=== PATIENT | female | born 1980 | race Caucasian/White ===

== ENCOUNTER 2019-11-28 19:01 | Emergency (ER) | payer MEDICARE, SELFPAY ==
[2019-11-28 19:08] VITALS: BP 120/86; PULSE 103; RESP 14; TEMP 36.7; O2SAT 100
--- NOTE | 2019-11-28 19:38 | ED.GENADULT ---
HPI - General Adult General Chief complaint: Upper Respiratory Infection Stated complaint: sore throat/headache Time Seen by Provider: 11/28/19 19:38 Source: patient and RN notes reviewed Mode of arrival: ambulatory Limitations: no limitations History of Present Illness HPI narrative: 38-year-old female presents with complaints of sore throat with white and red spots for 1 day. Tylenol, last at 18:00 with little relief. Sudafed and Benadryl last night without relief. No high fevers, drooling, neck or throat swelling. Pain is bilateral. Hurts to swallow. Exacerbation factors consist of eating and drinking. No rhinorrhea or nasal congestion. No voice change. No nausea, vomiting, or abdominal pain. Tolerating liquids well. LMP 11/27/19. Remains active. Denies chills, dyspnea, difficulty swallowing, jaw pain, dental pain, facial pain, foreign body sensation, and rash. Remains active. The patient reports she have not been diagnosed with COVID-19. The patient reports she is not waiting for the results of a COVID-19 lab test. The patient reports she do not have fever, chills, weakness, fatigue, myalgia, or facial swelling. The patient reports she do not have a new or worsening cough or shortness of breath. Denies chest pain. The patient reports she do not have any rhinorrhea, congestion, and diarrhea. Denies recent traveling. Denies concerns for COVID-19 or exposures been home with limited outdoor exposure except for essential household needs and return home. At this time, patient is not suspected of having COVID-19. Some parts of this dictation were generated by voice recognition software and may contain typographical and/or grammatical inaccuracies. Related Data Home Medications Medication Instructions Recorded Confirmed acetaminophen-codeine 1 tablet PO Q6H PRN 11/28/19 11/28/19 duloxetine 60 mg PO BID 11/28/19 11/28/19 hydroxyzine HCl 50 mg PO QID PRN 11/28/19 11/28/19 lamotrigine 150 mg PO DAILY 11/28/19 11/28/19 levothyroxine [Euthyrox] 50 mcg PO DAILY 11/28/19 11/28/19 pantoprazole 40 mg PO HS 11/28/19 11/28/19 pregabalin [Lyrica] 75 mg PO BID 11/28/19 11/28/19 Allergies Allergy/AdvReac Type Severity Reaction Status Date / Time No Known Allergies Allergy Verified 11/28/19 19:23 Review of Systems Review of Systems: Narrative: CONSTITUTIONAL: Denies fever, chills, sweats. EYES: Denies visual changes, redness, discharge. ENT: Denies rhinorrhea, congestion, otalgia. Complains of sore throat with red and white spots. CARDIOVASCULAR: Denies chest pain, palpitations, edema. RESPIRATORY: Denies dyspnea, wheezing, cough. GASTROINTESTINAL: Denies abdominal pain, nausea, vomiting, diarrhea. GENITOURINARY: Denies dysuria, hematuria, abnormal discharge. SKIN: Denies rash or itching. MUSCULOSKELETAL: Denies acute back pain, joint pain, or myalgia. NEUROLOGIC: Denies numbness or focal weakness. PSYCHIATRIC: Denies anxiety or depression. All systems reviewed & are unremarkable except as noted in HPI and below. [facility] Past Medical History Medical History (Updated 11/29/19 @ 00:00 by Jadyn Dixon) Anxiety Depression Fibromyalgia Aris's disease History of gastroesophageal reflux (GERD) History of OCD (obsessive compulsive disorder) History of strep sore throat Surgical History Surgical History (Updated 11/28/19 @ 19:52 by NESSA Mcintyre) History of cholecystectomy History of exploratory laparotomy Family History Family History (Updated 11/28/19 @ 19:52 by NESSA Mcintyre) Father S/P triple vessel bypass Mother Alive and well Social History Social History (Updated 12/05/19 @ 09:30 by NESSA Mcintyre) Smoking status: Never smoker Tobacco type: cigarettes Second hand tobacco smoke exposure: No Alcohol intake: current Substance use: never Living arrangements: with family Occupation/Education: occupation Gender identity (if verbalized by the patient):
== END 2019-11-28 19:50 | disposition home or self-care (01) ==
PROVIDERS: Emergency Provider Nurse Practitioner Family
DX: J02.0 Streptococcal pharyngitis (principal); F17.220 Nicotine dependence, chewing tobacco, uncomplicated; M79.7 Fibromyalgia; F32.9 Major depressive disorder, single episode, unspecified; E06.3 Autoimmune thyroiditis; K21.9 Gastro-esophageal reflux disease without esophagitis
CPT/HCPCS: 87880; 99213; G0463

== ENCOUNTER → 2021-02-07 11:04 | Outpatient (CLI) | payer MEDICARE, SELFPAY ==
--- NOTE | ~2021-02-07 | MM_ITS ---
EXAMINATION: MM screening aidee BI w chao HISTORY: Screening mammogram TECHNIQUE: Craniocaudal and mediolateral oblique 3-D tomosynthesis images were obtained and synthetic 2-D images were generated. CAD analysis was submitted and interpreted. COMPARISON: None, baseline BREAST PARENCHYMAL COMPOSITION: The breasts are heterogeneously dense, which may obscure small masses . FINDINGS: RIGHT BREAST: There are asymmetries in the posterior third of the upper breast and lower breast on th e mediolateral oblique view. LEFT BREAST: A mass is present in the posterior third of the outer breast. IMPRESSION: 1. Bilateral breast findings as above. 2. Additional mammographic views and possible breast ultrasound are recommended to evaluate for malig cleve and establish a baseline given that this is the first mammographic examination. BI-RADS Category 0: Incomplete: Needs additional imaging evaluation. Reviewed, dictated and finalized at location A. IMPRESSION: 1. Bilateral breast findings as above. 2. Additional mammographic views and possible breast ultrasound are recommended to evaluate for malignancy and establish a baseline given that this is the fir st mammographic examination. BI-RADS Category 0: Incomplete: Needs additional imaging evaluation.
== END ==
PROVIDERS: Visit Provider Obstetrics & Gynecology
DX: Z12.31 Encounter for screening mammogram for malignant neoplasm of breast (principal); R92.8 Other abnormal and inconclusive findings on diagnostic imaging of breast
CPT/HCPCS: 77063; 77067

== ENCOUNTER 2021-05-17 19:07 | Emergency (ER) | payer MEDICARE, SELFPAY ==
[2021-05-17 19:13] VITALS: BP 118/77; PULSE 98; RESP 18; TEMP 36.6; O2SAT 99
--- NOTE | 2021-05-17 19:20 | ED.URI ---
HPI - URI/Sore Throat General Chief Complaint: Upper Respiratory Infection Stated Complaint: Sore throat, headache. Source: patient Mode of arrival: ambulatory Limitations: no limitations History of Present Illness HPI Narrative: 40-year-old female presents to [facility] with complaints of sore throat, headache and sweats since this morning. Patient reports long history of strep throat. Patient denies cough, congestion, runny nose, nausea, vomiting or diarrhea. MD elicited complaint: sore throat and other (headache) Onset (ago): hour(s) (12) Able to tolerate fluids by mouth: Yes Context: recent hospitalization Related Data Home Medications Medication Instructions Recorded Confirmed acetaminophen-codeine 1 tablet PO Q6H PRN 11/28/19 11/28/19 duloxetine 60 mg PO BID 11/28/19 11/28/19 hydroxyzine HCl 50 mg PO QID PRN 11/28/19 11/28/19 lamotrigine 150 mg PO DAILY 11/28/19 11/28/19 levothyroxine [Euthyrox] 50 mcg PO DAILY 11/28/19 11/28/19 pantoprazole 40 mg PO HS 11/28/19 11/28/19 pregabalin [Lyrica] 75 mg PO BID 11/28/19 11/28/19 fluticasone propionate [Allergy 1 spray NASAL BID PRN 05/17/21 05/17/21 Relief (fluticasone)] Allergies Allergy/AdvReac Type Severity Reaction Status Date / Time No Known Allergies Allergy Verified 05/17/21 19:21 Review of Systems Constitutional: Constitutional: Reports chills, Denies fatigue, Denies fever(s) and Denies weakness ENT: Reports sore throat Cardiovascular: Cardiovascular: Denies chest pain, Denies rapid heart rate, Denies radiating jaw, neck or arm pain and Denies slow heart rate Gastrointestinal: Gastrointestinal: Denies abdominal pain, Denies nausea and Denies vomiting Neurologic: Reports headache(s) PMFSH Past Medical History Medical History Anxiety Depression Fibromyalgia Aris's disease History of gastroesophageal reflux (GERD) History of OCD (obsessive compulsive disorder) History of strep sore throat Surgical History Surgical History (Updated 11/28/19 @ 19:52 by NESSA Mcintyre) History of cholecystectomy History of exploratory laparotomy Family History Family History Father S/P triple vessel bypass Mother Alive and well Social History Social History Smoking status: Never smoker Tobacco type: cigarettes Second hand tobacco smoke exposure: No Alcohol intake: current Substance use: never Gender identity (if verbalized by the patient): Female Comments At time of signature, I agree with nursing past medical, surgical, social and family history. There is no relevant family history pertinent to the presenting complaint. Exam Const: General: healthy appearing and no acute distress Orientation/consciousness: patient oriented x3 HENMT: Head: normal to inspection General nose exam: Normal external nose present and Normal nares present Face and sinus: normal facial exam Mouth: Yes Normal oral and palatal mucosa present and Yes moist mucous membranes Throat: uvula midline Other: Mild erythema and swelling noted to bilateral tonsils Neck: Neck: normal visual inspection Resp: Effort & Inspection: normal respiratory effort and not tachypneic Auscultation: clear to auscultation bilaterally Cardio: Rate: regular rate Rhythm: regular rhythm Skin: General skin exam: normal color Rashes: no rashes Neuro: General: patient oriented x3, moves all extremities and no meningeal signs Extrem: General: normal to inspection Psych: Affect: normal affect Attitude: cooperative Course Course Level of Care: Express Care Visit Vital Signs Vital signs: Vital Signs Temperature 36.6 C 05/17/21 19:13 Pulse Rate 98 05/17/21 19:13 Respiratory Rate 18 05/17/21 19:13 Blood Pressure 118/77 05/17/21 19:13 Pulse Oximetry 99 05/17/21 19:13 Temperature
== END 2021-05-17 19:40 | disposition home or self-care (01) ==
PROVIDERS: Emergency Provider Nurse Practitioner Family
DX: J02.9 Acute pharyngitis, unspecified (principal); M79.7 Fibromyalgia; E06.3 Autoimmune thyroiditis; K21.9 Gastro-esophageal reflux disease without esophagitis
CPT/HCPCS: 87081; 87880; 99213; G0463

== ENCOUNTER 2021-07-01 11:24 | Emergency (ER) | payer MEDICARE, SELFPAY ==
--- NOTE | 2021-07-01 11:26 | ED.URI ---
HPI - URI/Sore Throat General Chief Complaint: Upper Respiratory Infection Stated Complaint: sore throat Time Seen by Provider: 07/01/21 11:26 Source: patient and RN notes reviewed History of Present Illness HPI Narrative: Patient is a 40-year-old female who presents the urgent care with complaints of a sore throat since that has worsened over the last 24 hours. Patient denies of any other upper respiratory complaints. Denies of fever, chills, nausea, vomiting or cough. Patient states she is been taking ibuprofen and Tylenol. Patient has a history of frequent strep throat. States that she just had it in either March or May. No other acute complaints. Denies of any contacts. No acute distress noted. Patient read the plan of care. Some parts of this dictation were generated by voice recognition software and may contain typographical and/or grammatical inaccuracies. Related Data Home Medications Medication Instructions Recorded Confirmed duloxetine 60 mg PO BID 11/28/19 05/17/21 lamotrigine 150 mg PO DAILY 11/28/19 05/17/21 levothyroxine [Euthyrox] 50 mcg PO DAILY 11/28/19 05/17/21 albuterol 90 mcg INHALATION Q4H PRN 07/01/21 07/01/21 gabapentin 600 mg PO TID 07/01/21 07/01/21 hydrocodone-acetaminophen 1 tablet PO Q6H PRN 07/01/21 07/01/21 montelukast [Singulair] 10 mg PO DAILY 07/01/21 07/01/21 trazodone 150 mg PO HS 07/01/21 07/01/21 Allergies Allergy/AdvReac Type Severity Reaction Status Date / Time No Known Allergies Allergy Verified 07/01/21 11:42 Review of Systems Review of Systems: CONSTITUTIONAL: Denies fever, chills, or sweats. EYES: Denies visual changes, redness, or discharge. ENT: Denies rhinorrhea, congestion, or otalgia. Reports of sore throat CARDIOVASCULAR: Denies chest pain, palpitations, or edema. RESPIRATORY: Denies cough or dyspnea. GASTROINTESTINAL: Denies abdominal pain, nausea, vomiting, or diarrhea. GENITOURINARY: Denies dysuria or hematuria. SKIN: Denies rash or itching. MUSCULOSKELETAL: Denies back pain, joint pain, or myalgia. NEUROLOGIC: Denies headache, numbness, or weakness. All other systems reviewed are negative, except as documented in HPI. [facility] Past Medical History Medical History Anxiety Depression Fibromyalgia Aris's disease History of gastroesophageal reflux (GERD) History of OCD (obsessive compulsive disorder) History of strep sore throat Surgical History Surgical History (Updated 11/28/19 @ 19:52 by NESSA Mcintyre) History of cholecystectomy History of exploratory laparotomy Family History Family History Father S/P triple vessel bypass Mother Alive and well Social History Social History Smoking status: Never smoker Tobacco type: cigarettes Second hand tobacco smoke exposure: No Alcohol intake: current Substance use: never Gender identity (if verbalized by the patient): Female Comments At the time of my signature, I reviewed and agree with the nursing past medical, surgical, social, and family history. There is no relevant family history pertinent to the patient complaint. Exam Narrative: GENERAL: This is a well-nourished, well-developed patient, in no apparent distress. HEAD: normocephalic, atraumatic. EYES: PERRL. Sclera clear/white. Vision is grossly intact. EARS: External ears normal, auditory canals clear and without drainage, TMs normal without perforation. Hearing grossly intact. NOSE: External nose normal with no obvious nasal discharge, nares without redness, no rhinorrhea. THROAT: Mucous membranes moist, posterior pharynx clear. Moderate postnasal drainage NECK: Neck supple, non-tender without lymphadenopathy CARDIOVASCULAR: Regular rate and rhythm without murmurs, gallops, or rubs. RESPIRATORY: Clear to auscultation. Breath sounds equal robert
[2021-07-01 11:28] VITALS: BP 104/71; PULSE 102; RESP 16; TEMP 37.2; O2SAT 100
[2021-07-01 11:47] VITALS: BP 104/71; PULSE 102; RESP 16; TEMP 37.2; O2SAT 100
== END 2021-07-01 12:03 | disposition home or self-care (01) ==
PROVIDERS: Emergency Provider Nurse Practitioner Family
DX: J02.9 Acute pharyngitis, unspecified (principal); M79.7 Fibromyalgia; K21.9 Gastro-esophageal reflux disease without esophagitis; E06.3 Autoimmune thyroiditis; F32.A Depression, unspecified
CPT/HCPCS: 87081; 87880; 99213; G0463